=== PATIENT | female | born 1965 | race Caucasian/White ===

== ENCOUNTER 2018-10-11 08:47 | Emergency (ER) | payer BC ==
[2018-10-11 09:02] VITALS: BP 148/85
[2018-10-11 09:24] LABS: Influenza A Molecular NEGATIVE (Negative); Influenza B Molecular NEGATIVE (Negative)
--- NOTE | 2018-10-11 10:11 | UC ---
Respiratory Complaint HPI - HPI Summary HPI Summary: 53-year-old female with history of asthma presents with 4 day history of fatigue , chills, nasal congestion, runny nose, progressively worsening and dry nonproductive cough, chest "tightness", and mild shortness of breath. States she has increased her Symbicort 2 puffs twice a day but has not been using her rescue inhaler. Denies fever, ear pain, sore throat, chest pain, palpitations, wheezing, abdominal pain, nausea, vomiting, or diarrhea. - History of Current Complaint Chief Complaint: UCRespiratory Stated Complaint: FLU LIKE SYMP Time Seen by Provider: 10/11/18 10:03 Hx Obtained From: Patient Hx Last Menstrual Period: 1 mo ago Pain Intensity: 4 - Allergies/Home Medications Allergies/Adverse Reactions: Allergies Allergy/AdvReac Type Severity Reaction Status Date / Time tramadol Allergy Nausea Verified 10/11/18 09:02 Home Medications: Home Medications Fluticasone NASAL SPRAY 50MCG* [Flonase NASAL SPRAY 50MCG*] 2 spray BOTH NARES DAILY 10/11/18 [History Confirmed 10/11/18] traZODone TAB* [Desyrel TAB*] 50 mg PO BEDTIME 10/11/18 [History Confirmed 10/11] PMH/Surg Hx/FS Hx/Imm Hx Previously Healthy: Yes Respiratory History: Asthma - Surgical History Surgical History: Yes Surgery Procedure, Year, and Place: 1986 BTL [facility] [place]. 2001 RT WRIST GANGLION CYST [facility] [place] - Family History Family History: NON CONTRIBUTORY - Social History Occupation: Employed Full-time Lives: With Family Alcohol Use: None Substance Use Type: None Smoking Status (MU): Former Smoker When Did the Patient Quit Smoking/Using Tobacco: 20 yrs Review of Systems All Other Systems Reviewed And Are Negative: Yes Constitutional: Positive: Chills, Fatigue. Negative: Fever Skin: Negative: Rash Eyes: Negative: Drainage, Eye Redness ENT: Positive: Nasal Discharge, Sinus Congestion. Negative: Sore Throat, Ear Ache, Sinus Pain/Tenderness Respiratory: Positive: Shortness Of Breath, Cough Cardiovascular: Negative: Palpitations, Chest Pain Gastrointestinal: Negative: Abdominal Pain, Vomiting, Diarrhea, Nausea Genitourinary: Positive: Negative Musculoskeletal: Positive: Negative Neurological: Positive: Negative Is Patient Immunocompromised?: No Physical Exam - Summary Physical Exam Summary: GENERAL APPEARANCE: Well developed, well nourished, alert and cooperative, and appears to be in no acute distress. EYES: Conjunctiva clear. No drainage. Vision is grossly intact. EARS: External auditory canals and tympanic membranes clear, hearing grossly intact. NOSE: Mild-moderate nasal congestion with clear discharge. THROAT: Mild pharyngeal erythema with cobblestoning. No tonsilar inflammation, swelling, exudate, or lesions. NECK: Neck supple, non-tender without lymphadenopathy. CARDIAC: Normal S1 and S2. No S3, S4 or murmurs. Rhythm is regular. There is no peripheral edema, cyanosis or pallor. Extremities are warm and well perfused. Capillary refill is less than 2 seconds. LUNGS: Clear to auscultation without rales, rhonchi, wheezing or diminished breath sounds. ABDOMEN: Positive bowel sounds. Soft, nondistended, nontender. No guarding or rebound. No masses or hepatosplenomegally. MUSKULOSKELETAL: ROM intact to all extremities. No joint erythema or tenderness. Normal muscular development. Normal gait. SKIN: Skin normal color, texture and turgor with no lesions or eruptions. Triage Information Reviewed: Yes Vital Signs: Initial Vital Signs Temp 97.3 F 10/11/18 08:58 Pulse 92 10/11/18 08:58 Resp 16 10/11/18 08:58 BP 148/85 10/11/18 08:58 Pulse Ox 96 10/11/18 08:58 Vital Signs Reviewed: Yes UC Diagnostic Evaluation - Laboratory O2 Sat by Pulse Oximetry: 96 Diagnostic Studies Comment: rapid flu negative Respiratory Course/Dx - Course Course Of Treatment: 53-year-old female with history of asthma presents with 4 day history of fatigue, chills, nasal congestion, runny nose, progressively worsening and dry nonproductive cough, chest "tightness", and mild shortness of breath. States she has increased her Symbicort 2 puffs twice a day but has not been using her rescue inhaler. Denies fever, ear pain, sore throat, chest pain , palpitations, wheezing, abdominal pain, nausea, vomiting, or diarrhea. Afebrile. Vital signs stable. Exam reveals an adult female in no acute distress with nasal congestion, clear nasal discharge, mild pharyngeal erythema with cobblestoning, occasional dry nonproductive cough, bilaterally clear breath sounds, and otherwise unremarkable exam. Suspect patient has an acute upper respiratory infection is likely viral however with her history of asthma, worsening cough, and reports of shaking chills will cover for secondary bacterial infection with a course of azithromycin. Recommending that she continue using her Symbicort as directed, encouraged her to use her albuterol more frequently for shortness of breath, wheezing, or coughing fits, and recommending symptomatic treatment for URI symptoms. She is to follow-up with her primary care provider in 3-5 days if symptoms do not improve. Anticipatory guidance warning symptoms reviewed with the patient. Verbalizes understanding and agrees to plan of care. - Differential Dx/Diagnosis Differential Diagnosis/HQI/PQRI: Asthma, Bronchitis, Influenza, Lower Resp Infection, Sinusitis Provider Diagnosis: Upper respiratory infection with cough and congestion, Asthma Discharge - Sign-Out/Discharge Documenting (check all that apply): Patient Departure All imaging exams completed and their final reports reviewed: No Studies - Discharge Plan Condition: Stable Disposition: HOME Prescriptions: Azithromyxin KODAK (NF) [Z-Kodak (Zithromax) 250 mg tabs #6] 2 tab PO .TODAY, THEN 1 DAILY #6 tab Patient Education Materials: Asthma (ED), Upper Respiratory Infection (ED) Referrals: Ruddy Patterson MD [Primary Care Provider] - 3 Days (Follow up in 3-5 days if no improvement in symtoms.) Additional Instructions: Your history and exam are consistent with an upper respiratory infection. Upper respiratory infections are most often viral but with your history of asthma and chills I will treat you for an secondary bacterial infection. Start azithromycin 2 tabs today then 1 tab a day for next 4 days. Continue to use your Symbicort as directed. Use your albuterol inhaler 2 puffs every 4-6 hours as needed for shortness of breath, wheezing, or coughing fits. Drink plenty of fluids to avoid dehydration especially if you are running any fever. Use a saline rinse kit such as Neti Pot or NeilMed at least twice a day to help thin secretions and promote drainage of the sinuses. Continue to use fluticasone (Flonase) nasal spray 2 sprays each nostril once daily. Take over the counter acetaminophen (Tylenol) or ibuprofen (Advil, Motrin) according to directions as needed for pain or fever. Follow up with your primary care provider in 3-5 days if symptoms persist. Seek immediate medical attention in the emergency room if you have fever greater than 100.5 F despite taking acetaminophen or ibuprofen, have chest pain , difficulty breathing, are unable to swallow, or have any worsening of symptoms. - Billing Disposition and Condition Condition: STABLE Disposition: Home
== END 2018-10-11 10:25 | disposition home or self-care (01) ==
LOC: UCEAST 08:47
DX: J06.9 Acute upper respiratory infection, unspecified (principal); R09.81 Nasal congestion; R05 Cough; J45.909 Unspecified asthma, uncomplicated; Z87.891 Personal history of nicotine dependence; Z88.5 Allergy status to narcotic agent
CPT/HCPCS: 99202; G0463